=== PATIENT | female | born 1985 | race Caucasian/White ===

== ENCOUNTER 2017-03-05 14:46 | Emergency (ER) | payer SELFPAY ==
[~2017-03-05] VITALS: Ht 162.6 cm; Wt 108.6 kg
[~2017-03-05 14:46] MED LIST: BACTRIM,SEPT1 TABLET PO; CLINDAMYCIN HC300 MG PO; FLAGYL500 MG PO; HYDROCODON-ACE1 EAC7 PO; KEFLEX500 MG PO; NOHOMEMEDS
[2017-03-05] MEDS ORDERED: NAPROSYN500 MG PO (16:29)
[2017-03-05 16:36] VITALS: BP 115/75
== END 2017-03-05 16:53 | disposition home or self-care (01) ==
LOC: EME 14:46
DX: S93.401A Sprain of unspecified ligament of right ankle, initial encounter (principal); S83.92XA Sprain of unspecified site of left knee, initial encounter; W18.30XA Fall on same level, unspecified, initial encounter; X50.9XXA Other and unspecified overexertion or strenuous movements or postures, initial encounter; Y93.89 Activity, other specified; Y92.832 Beach as the place of occurrence of the external cause
CPT/HCPCS: 73564; 73610; 99281; 99283